=== PATIENT | male | born 1975 | race Caucasian/White ===

== ENCOUNTER 2018-01-17 21:33 | Emergency (ER) | payer SELFPAY ==
[2018-01-17] MEDS ORDERED: cloNIDine 0.1 MG TAB ONE (22:15)
== END 2018-01-17 22:30 | disposition home or self-care (01) ==
LOC: SCSER 21:33
DX: J32.0 Chronic maxillary sinusitis (principal); Z71.6 Tobacco abuse counseling; I10 Essential (primary) hypertension; Z79.899 Other long term (current) drug therapy
CPT/HCPCS: 99406